=== PATIENT | female | born 1985 | race Caucasian/White ===

== ENCOUNTER 2018-04-11 07:38 | Inpatient (IN) | payer OTHER ==
[2018-04-11] MEDS ORDERED: ONDANSETRON 4 MG/2 ML VIAL IVP ONE (07:53)
[2018-04-11] MEDS ORDERED: NS 1,000 ML IV ONE ×2 (07:53→11:24)
[2018-04-11] MEDS ORDERED: KETOROLAC 30 MG/1 ML SDV IVP ONE (08:11)
--- NOTE | 2018-04-11 08:12 | EDPHY ---
HPI/HX/ROS/PE/MDM Narrative: CHIEF COMPLAINT: Abdominal cramping, nausea HPI: This patient is a 33 year old female with no significant past medical history. Yesterday evening, she had [place] food for dinner at a restaurant. About 12 hours ago, she developed generalized abdominal cramping which has worsened steadily. Upon her arrival in the ED this morning, she began vomiting. She denies diarrhea and has not been able to have any bowel movements. She has felt febrile. Her significant other at bedside ate different food at the same restaurant and is asymptomatic. The patient denies history of abdominal surgery. Her last menstrual period was three weeks ago. No chest pain, shortness of breath, dysuria, hematemesis, or other associated symptoms. REVIEW OF SYSTEMS: Aside from elements discussed in the HPI, a comprehensive 10-point review of systems was reviewed and is negative. PMH: Denies. SOCIAL HISTORY: Significant other at bedside. Lives in [place]. Employed. Does not abuse tobacco, drugs, or alcohol. PHYSICAL EXAM: General:Patient is alert, in no acute distress. ENT:Eyes are normal to inspection. ENT inspection normal. Neck: Normal inspection. Full range of motion. Respiratory:No respiratory distress. Breath sounds normal bilaterally. Cardiovascular: Regular rate and rhythm. Strong peripheral pulses. Normal cap refill. Abdomen: Diffuse mild abdominal pain. There are no peritoneal signs. There are normal bowel sounds. Back: Normal to inspection. No tenderness to palpation. Skin: Normal color. No rash. Warm and dry. Extremities: Normal appearance. Full range of motion. Neuro: Oriented x3. Normal motor function. Normal sensory function. ED Course: 33 y/o female presents with abdominal cramping and nausea onset 12 hours ago. She began vomiting on arrival in the ED. Plan for labs including CBC, chemistries, liver, lipase, BHCG, UA. Plan to administer 1L IVF, 4mg IV Zofran, and 30mg IV Ketorolac for symptom relief. BHCG negative. WBC 15,000. 11:[address] Luna, radiologist. CT abdomen/pelvis shows ruptured appendicitis. The patient's last oral intake was yesterday evening around 19: 00. 11:[address] Regan, general surgeon. He will evaluate the patient. He accepts admission for appendicitis. Plan to administer 1gm IV Rocephin, 500mg IV Flagyl, 0.5mg IV Dilaudid, and an additional 1L IV NS. - Data Points Imaging Results: Imaging Impressions Abdomen CT 04/11/18 10:22 Impression: 1. Acute almost certainly ruptured appendicitis with a small amount of ascites with no visible abscess. 2. Additional findings as above. Findings discussed with Lalo Hogue MD 04/11/2018 at 11:18. Laboratory Results: Laboratory Results 04/11/18 08:00 04/11/18 08:00 04/11/18 04/11/18 04/11/18 11:00 08:00 08:00 WBC RBC Hgb Hct MCV MCH MCHC RDW Plt Count MPV Neut % (Auto) Lymph % (Auto) Henry % (Auto) Eos % (Auto) Baso % (Auto) Nucleat RBC Rel Count Absolute Neuts (auto) Absolute Lymphs (auto) Absolute Monos (auto) Absolute Eos (auto) Absolute Basos (auto) Absolute Nucleated RBC Immature Gran % Immature Gran # Sodium 136 mEq/L mEq/L (135-145) Potassium 3.9 mEq/L mEq/L (3.3-5.0) Chloride 104 mEq/L mEq/L (97-110) Carbon Dioxide 21 mEq/l L mEq/l (22-31) Anion Gap 11 mEq/L mEq/L (8-16) BUN 10 mg/dL mg/dL (7-23) Creatinine 0.8 mg/dL mg/dL (0.6-1.0) Estimated GFR > 60 Glucose 143 mg/dL H mg/dL (70-100) Calcium 10.1 mg/dL mg/dL (8.5-10.4) Total Bilirubin 0.6 mg/dL mg/dL (0.1-1.4) Conjugated Bilirubin 0.2 mg/dL mg/dL (0.0-0.5) Unconjugated Bilirubin 0.4 mg/dL mg/dL (0.0-1.1) AST 23 IU/L IU/L (14-46) ALT 24 IU/L IU/L (9-52) Alkaline Phosphatase 53 IU/L IU/L (38-126) Total Protein 6.6 g/dL g/dL (6.3-8.2) Albumin 4.0 g/dL g/dL (3.5-5.0) Lipase 161 IU/L IU/L (23-300) Beta HCG, Qual NEGATIVE Urine Color YELLOW Urine Appearance MODERATELY TURBID Urine pH 7.0 (5.0-7.5) Ur Specific Cameron 1.013 (1.002-1.030) Urine Protein NEGATIVE (NEGATIVE) Urine Ketones NEGATIVE (NEGATIVE) Urine Blood NEGATIVE (NEGATIVE) Urine Nitrate NEGATIVE (NEGATIVE) Urine Bilirubin NEGATIVE (NEGATIVE) Urine Urobilinogen NEGATIVE EU EU (0.2-1.0) Ur Leukocyte Esterase NEGATIVE (NEGATIVE) Urine Glucose NEGATIVE (NEGATIVE) 04/11/18 08:00 WBC 15.08 10^3/uL H 10^3/uL (3.80-9.50) RBC 4.97 10^6/uL 10^6/uL (4.18-5.33) Hgb 15.2 g/dL g/dL (12.6-16.3) Hct 43.3 % % (38.0-47.0) MCV 87.1 fL fL (81.5-99.8) MCH 30.6 pg pg (27.9-34.1) MCHC 35.1 g/dL g/dL (32.4-36.7) RDW 11.7 % % (11.5-15.2) Plt Count 325 10^3/uL 10^3/uL (150-400) MPV 10.8 fL fL (8.7-11.7) Neut % (Auto) 80.2 % H % (39.3-74.2) Lymph % (Auto) 14.3 % L % (15.0-45.0) Henry % (Auto) 4.4 % L % (4.5-13.0) Eos % (Auto) 0.5 % L % (0.6-7.6) Baso % (Auto) 0.3 % % (0.3-1.7) Nucleat RBC Rel Count 0.0 % % (0.0-0.2) Absolute Neuts (auto) 12.08 10^3/uL H 10^3/uL (1.70-6.50) Absolute Lymphs (auto) 2.15 10^3/uL 10^3/uL (1.00-3.00) Absolute Monos (auto) 0.67 10^3/uL 10^3/uL (0.30-0.80) Absolute Eos (auto) 0.08 10^3/uL 10^3/uL (0.03-0.40) Absolute Basos (auto) 0.05 10^3/uL 10^3/uL (0.02-0.10) Absolute Nucleated RBC 0.00 10^3/uL 10^3/uL (0-0.01) Immature Gran % 0.3 % % (0.0-1.1) Immature Gran # 0.05 10^3/uL 10^3/uL (0.00-0.10) Sodium Potassium Chloride Carbon Dioxide Anion Gap BUN Creatinine Estimated GFR Glucose Calcium Total Bilirubin Conjugated Bilirubin Unconjugated Bilirubin AST ALT Alkaline Phosphatase Total Protein Albumin Lipase Beta HCG, Qual Urine Color Urine Appearance Urine pH Ur Specific Cameron Urine Protein Urine Ketones Urine Blood Urine Nitrate Urine Bilirubin Urine Urobilinogen Ur Leukocyte Esterase Urine Glucose Medications Given: Discontinued Medications Cefazolin Sodium (Ancef Syringe) Confirm Administered Dose 1 gm .ROUTE .STK-MED ONE Stop: 04/11/18 13:46 Last Admin: 04/11/18 15:26 Dose: 1 gm Cefazolin Sodium (Ancef Syringe) Confirm Administered Dose 1 gm .ROUTE .STK-MED ONE Stop: 04/11/18 13:46 Last Admin: 04/11/18 15:25 Dose: 1 gm Fentanyl (Sublimaze) 25 mcg IVP .Q5MIN PRN PRN Reason: Pain, Severe Stop: 04/11/18 14:00 Last Admin: 04/11/18 13:42 Dose: 25 mcg Heparin Sodium (Porcine) (Heparin Sc Injection) Confirm Administered Dose 5,000 unit .ROUTE .STK-MED ONE Stop: 04/11/18 13:45 Last Admin: 04/11/18 15:28 Dose: 5,000 unit Heparin Sodium (Porcine) (Heparin Sc Injection) Confirm Administered Dose 5,000 unit .ROUTE .STK-MED ONE Stop: 04/11/18 13:51 Last Admin: 04/11/18 15:27 Dose: 5,000 unit Sodium Chloride (Ns) 1,000 mls @ 0 mls/hr IV EDNOW ONE; Wide Open PRN Reason: Protocol Stop: 04/11/18 07:54 Last Admin: 04/11/18 08:03 Dose: 1,000 mls Ceftriaxone Sodium/Dextrose (Rocephin 1 Gm (Premix)) 50 mls @ 100 mls/hr IV EDNOW ONE PRN Reason: Protocol Stop: 04/11/18 11:53 Last Admin: 04/11/18 11:59 Dose: 50 mls Sodium Chloride (Ns) 1,000 mls @ 0 mls/hr IV EDNOW ONE; Wide Open PRN Reason: Protocol Stop: 04/11/18 11:25 Last Admin: 04/11/18 12:00 Dose: 1,000 mls Lactated Ringer's (Lr) 1,000 mls @ 0 mls/hr IV ONCE ONE PRN Reason: Per Protocol Stop: 04/11/18 12:24 Last Admin: 04/11/18 13:05 Dose: 1,000 mls Metronidazole/Sodium Chloride (Flagyl 500 Mg (Premix)) 100 mls @ 100 mls/hr IV ONCALL ONE PRN Reason: Protocol Stop: 04/11/18 14:29 Last Admin: 04/11/18 13:42 Dose: 100 mls Ketorolac Tromethamine (Toradol) 30 mg IVP EDNOW ONE Stop: 04/11/18 08:12 Last Admin: 04/11/18 08:29 Dose: 30 mg Lorazepam (Ativan Injection) 0.5 mg IVP EDNOW ONE Stop: 04/11/18 11:14 Last Admin: 04/11/18 11:18 Dose: 0.5 mg Midazolam HCl (Versed) 2 mg IVP ONCALL ONE Stop: 04/11/18 14:41 Last Admin: 04/11/18 14:49 Dose: 2 mg Ondansetron HCl (Zofran) 4 mg IVP EDNOW ONE Stop: 04/11/18 07:54 Last Admin: 04/11/18 08:03 Dose: 4 mg General Time Seen by Provider: 04/11/18 08:05 Initial Vital Signs: Initial Vital Signs Temperature (C) 36.4 C 04/11/18 07:41 Heart Rate 67 04/11/18 07:41 Respiratory Rate 22 H 04/11/18 07:41 Blood Pressure 92/46 L 04/11/18 07:41 O2 Sat (%) 100 04/11/18 07:41 O2 Delivery Mode Room Air Allergies/Adverse Reactions: No Known Allergies Allergy (Unverified 04/11/18 07:40) Home Medications: Medication Instructions Recorded Bcp 04/11/18 Departure - Departure Disposition: To OP Cath/Surgery Clinical Impression: Acute appendicitis Qualifiers: Acute appendicitis type: unspecified acute appendicitis type Qualified Code(s) : K35.80 - Unspecified acute appendicitis Condition: Fair Report Scribed for: Lalo Hogue Report Scribed by: Annalise Grayson Date of Report: 04/11/18 Time of Report: 08:09 Physician Review and Approval Statement: Portions of this note were transcribed by an ED scribe. I personally performed the history, physical exam, and medical decision making; and confirm the accuracy of the information in the transcribed note.
[2018-04-11 08:15] LABS: PLATELET COUNT 325 10^3/uL (150-400)
[2018-04-11] MEDS ORDERED: KETOROLAC 30 MG/1 ML SDV ONE ×2 (08:28→16:10)
[2018-04-11] MEDS ORDERED: IOPAMIDOL (ISOVUE-300) 100 ML BTL ONE (10:40)
[2018-04-11] MEDS ORDERED: LORazepam 2 MG/ML INJ IVP ONE (11:13)
[2018-04-11] MEDS ORDERED: HYDROmorphONE/DILAUDID 2 MG/ML INJ IVP ONE (12:18)
[2018-04-11] MEDS ORDERED: ACETAMINOPHEN 500 MG TAB PO ONE (12:18)
[2018-04-11] MEDS ORDERED: LR 1,000 ML IV ONE (12:23)
--- NOTE | 2018-04-11 12:49 | GHP ---
[f rep st] PREOP HISTORY AND PHYSICAL DATE OF ADMISSION: 04/11/2018 ADMISSION DIAGNOSIS: Appendicitis, possibly ruptured. HISTORY: The patient is a 33-year-old white female who last night ate Filipino food, then Cook Islander food. She experienced an epigastric pain in waves. She felt poorly overnight. She vomited on admission t o the ER. She has had minimal stool outlets out since onset. She has an upper respiratory tract iss ue which she has ascribed to allergies. She has not had diarrhea. She has not had any antibiotics i n the last 6 months. She was in [place] from February 23 to . No history of inflammatory bowel disease . No prior abdominal surgery. Her last menstrual period was 2-3 weeks ago. She does not smoke. Sh e drinks approximately 5 drinks a weekend. ALLERGIES: She has no known drug allergies. MEDICATIONS: She is on oral contraceptives. PAST SURGICAL HISTORY: Her only surgery has been wisdom tooth extraction and dental implants. PAST MEDICAL HISTORY: There is no history of rheumatic fever, tuberculosis, hepatitis, transfusions. REVIEW OF SYSTEMS: She has 2 dental implants. She indicates her upper lateral incisors. Review of systems is absolutely negative. No limits on her activities. No history of steroid use. FAMILY HISTORY: Mother is 65 years old and alive and well. Her father at age 68 from pancreati c cancer. The patient's younger brother, who is 29, is alive and well. There are no bleeding disord ers, clotting disorders, difficulty with anesthesia in the patient's family. PHYSICAL EXAMINATION: GENERAL: She is seen lying on her right side. She is interactive, but uncomf ortable. HEENT: Her skull is normocephalic and atraumatic. NECK: There is no thyroid enlargement. There are no jugular bruits. BACK: Her back is unremarkable. LUNGS: Clear to auscultation. CAR DIAC: Her cardiac exam shows S1, S2 to be normal. LYMPHATICS: There is no cervical, supraclavicula r, axillary or inguinal lymphadenopathy. ABDOMEN: Mildly distended. She has hypoactive bowel sound s. She has a positive obturator and negative psoas sign. She is tender 2 fingerbreadths inferior an d 2 fingerbreadths lateral to the umbilicus. It is tender to a level of 8 with cough. To palpation, left upper quadrant is 6/10, left midabdomen is 8, left lower quadrant 6, epigastrium is 7, periumbi lical area is 8, suprapubic area is 8, right upper quadrant 6, right mid abdomen is 8, right lower qu adrant is 8-9. EXTREMITIES: Her extremities are unremarkable. LABORATORY DATA: Her beta HCG is negative. Her urine is unremarkable. Her glucose is 143. Her whi te count is 15,000 with 80% neutrophils. Hematocrit is 43%. Her platelets were 325. IMAGING: Her CT scan shows an appendix that may or may not be ruptured. It is medially located cons istent with the point of maximal tenderness with cough. She will receive ceftriaxone and Flagyl preo peratively. She will go to the operating room as soon as a room is available. /[id number]/MODL
[2018-04-11] MEDS: fentaNYL 100 MCG/2 ML INJ IVP PRN ×4 (12:55→13:42)
--- NOTE | 2018-04-11 13:28 | PDANEPAE ---
ANE History of Present Illness laparoscopic appendectomy ANE Past Medical History - Cardiovascular History Hx Hypertension: No Hx Arrhythmias: No Hx Chest Pain: No Hx Coronary Artery / Peripheral Vascular Disease: No Hx CHF / Valvular Disease: No Hx Palpitations: No - Pulmonary History Hx COPD: No Hx Asthma/Reactive Airway Disease: No Hx Recent Upper Respiratory Infection: No Hx Oxygen in Use at Home: No Hx Sleep Apnea: No - Neurologic History Hx Cerebrovascular Accident: No Hx Seizures: No Hx Dementia: No - Endocrine History Hx Diabetes: No Obesity: no - Renal History Hx Renal Disorders: No - Liver History Hx Hepatic Disorders: No - Neurological & Psychiatric Hx Hx Neurological and Psychiatric Disorders: No - Cancer History Hx Cancer: No - Congenital Disorder History Hx Congenital Disorders: No - GI History GERD: no Hx Gastrointestinal Disorders: No - Chronic Pain History Chronic Pain: No - Surgical History Prior Surgeries: wisdom teeth, tooth implants ANE Review of Systems Review of Systems: - Exercise capacity METS (RN): 6 METS ANE Patient History - Allergies Allergies/Adverse Reactions: No Known Allergies Allergy (Unverified 04/11/18 07:40) - Home Medications Home Medications: Bcp 04/11/18 [Last Taken 04/10/18] - NPO status NPO Since - Liquids (Date): 04/11/18 NPO Since - Liquids (Time): 07:00 NPO Since - Solids (Date): 04/10/18 NPO Since - Solids (Time): 23:30 - Smoking Hx Smoking Status: Never smoked Marijuana use: Yes - Alcohol Use Alcohol Use: Other (1 drink/week) - Family Anes Hx Family Anes Hx: none Family Hx Anesthesia Complications: none known ANE Labs/Vital Signs - Labs Result Diagrams: 04/11/18 08:00 04/11/18 08:00 - Vital Signs Blood Pressure: 108/64 Heart Rate: 77 Respiratory Rate: 16 O2 Sat (%): 97 Height: 165.1 cm Weight: 56.699 kg ANE Physical Exam - Airway Neck exam: FROM Mallampati Score: Class 2 Mouth exam: normal dental/mouth exam (Upper front implants) - Pulmonary Pulmonary: clear to auscultation - Cardiovascular Cardiovascular: regular rate and rhythym - ASA Status ASA Status: II, E ANE Anesthesia Plan Anesthesia Plan: general endotracheal anesthesia
[2018-04-11] MEDS ORDERED: HEPARIN 5,000 UNIT/0.5 ML INJ ONE ×2 (13:44→13:50)
[2018-04-11] MEDS ORDERED: ceFAZolin 1 GM/5 ML SYR ONE ×2 (13:45)
[2018-04-11] MEDS ORDERED: fentaNYL 250 MCG/5 ML INJ ONE (14:30)
[2018-04-11] MEDS ORDERED: ROCURONIUM 50 MG/5 ML VIAL ONE (14:30)
[2018-04-11] MEDS ORDERED: PROPOFOL 200 MG/20 ML VIAL ONE (14:30)
[2018-04-11] MEDS ORDERED: DEXAMETHASONE 4 MG/ML VIAL ONE (14:30)
[2018-04-11] MEDS ORDERED: MIDAZOLAM 2 MG/2 ML VIAL IVP ONE (14:40)
[2018-04-11] MEDS ORDERED: SUCCINYLCHOLINE CHLORIDE 200 MG/10 ML SYR IVP ONE (14:51)
[2018-04-11] MEDS ORDERED: METOCLOPRAMIDE 10 MG/2 ML VIAL ONE (15:21)
[2018-04-11] MEDS ORDERED: ONDANSETRON 4 MG/2 ML VIAL ONE (15:40)
[2018-04-11] MEDS ORDERED: fentaNYL 100 MCG/2 ML INJ IVP PRN (15:55)
[2018-04-11] MEDS ORDERED: ONDANSETRON 4 MG/2 ML VIAL IVP PRN ×2 (15:55→16:57)
[2018-04-11] MEDS ORDERED: NALOXONE HCL 0.4 MG/ML INJ IVP PRN (15:55)
[2018-04-11] MEDS ORDERED: NEOSTIGMINE METHYLSULFATE 10 MG/10 ML MDV ONE (15:56)
[2018-04-11] MEDS ORDERED: GLYCOPYRROLATE 0.2 MG/1 ML VIAL ONE (15:56)
--- NOTE | 2018-04-11 16:32 | POSTANESTH ---
Post Anesthetic Evaluation Cardiovascular Status: Normal, Stable Respiratory Status: Normal, Stable Level of Consciousness/Mental Status: Can Participate in Eval Pain Control: Adequate, Prn Tx Ordered Nausea/Vomiting Control: Adequate, Prn Tx Ordered Complications Possibly Related to Anesthesia: None Noted
[2018-04-11] MEDS ORDERED: HYDROmorphone HCL/NS 0.5 MG/ML SYR IVP PRN (17:02)
--- NOTE | 2018-04-11 17:09 | POSTOPPROG ---
Post Op Note Date of Operation: 04/11/18 Surgeon: Luis Daniel Regan Anesthesia: GET(General Endotracheal) Pre-op Diagnosis: acute (possibly ruptured) appendicitis Post-op Diagnosis: acute ruptured appendicitis with mesenteric adenitis Indication: acute (possibly ruptured) appendicitis Procedure: Laparoscopic appendectomy Findings: acute ruptured appendicitis with mesenteric adenitis Inf/Abcess present in the surg proc area at time of surgery?: Yes Depth: Organ Space EBL: Minimal Total fluids administered: 1000 Complications: none Drains: João Abbott (In pelvis) Specimen(s): appendix, Peritoneal fluid
[2018-04-11] MEDS: ACETAMINOPHEN 500 MG TAB PO SCH (17:59)
[2018-04-11] MEDS: PIPERACILLIN/TAZO 3.375 GM/DEX 50 ML IV SCH ×2 (18:00→23:23)
[2018-04-11] MEDS: LR 1,000 ML IV SCH (18:07)
--- NOTE | 2018-04-11 19:12 | GOP ---
[f rep st] OPERATIVE REPORT DATE OF OPERATION: 04/11/2018 SURGEON: Luis Daniel Regan MD ANESTHESIA: General endotracheal. PREOPERATIVE DIAGNOSIS: Acute, possibly ruptured, appendicitis. POSTOPERATIVE DIAGNOSIS: Ruptured appendicitis with mesenteric adenitis and gross peritonitis. PROCEDURE PERFORMED: Laparoscopic appendectomy. Peritoneal fluid was sampled for culture. ZHANE drain was placed. FINDINGS: Ruptured appendicitis with mesenteric adenitis and gross peritonitis. INDICATIONS: Acute, possibly ruptured, appendicitis. DESCRIPTION OF PROCEDURE: The patient is placed on the operating table in supine position. After induction of adequate general endotracheal anesthesia, the abdomen was carefully prepped and draped. A surgical time-out was carried out and agreed to by all members of the operative team. A curvilinear incision was planned in the infraumbilical rim. A left lower quadrant 5 mm oblique and suprapubic transverse 5 mm incisions were also made. Infraumbilical incision is completed down to the fascia. The umbilical skin was carefully elevated. A small umbilical hernia was carefully dissected off the umbilical skin. Dissection was continued down to the rectus fascia. It was cleared circumferentially on the hernia. The herniated fat was carefully transected with cautery. A pursestring PDS was placed. The hernia defect was approximately 5 mm in diameter. The hernia defect is carefully enlarged, spreading. The peritoneum was entered. A 11-12 mm disposable Adrian trocar was positioned. Intraabdominal insufflation was carried out to 15 mm of high flow. The patient is placed in Trendelenburg position rotated 5 degrees to the left. On examining the belly, a large amount purulent fluid was noted in the pelvis. This is carefully aspirated and sent for aerobic and anaerobic cultures. Irrigation with heparin and Ancef- containing irrigant was carried out at this point. The appendix was carefully elevated. It is the distal 1/3 that is truly involved with inflammatory process. The omentum is carefully peeled away from it. The mesoappendix was divided down to the base of the appendix using Harmonic scalpel. The appendix was elevated and transection was carried out on the cecum taking a cuff with the appendix. The suture line was inspected and looks excellent. The specimen was placed in EndoCatch bag and delivered via the umbilical port site. Pneumoperitoneum was re-established. Copious irrigation was again carried out. The small bowel was carefully run for a distance of 3 feet. Mesenteric adenitis was identified in the region of the terminal ileum. There was no evidence of Meckel diverticulum. Photographic documentation of the ovaries and uterus were carried out. A total of 2 L of antibiotic and heparin-containing solution was used. Irrigation was carried out in all aspects of the abdomen. Tracheal irrigating above the liver and spleen. A ZHANE drain was placed down into the pelvis and led out through the left lower quadrant is secured with a suture of #3-0 silk. Ports removed under direct vision. An inverted simple suture #0 PDS was placed in the midline of the umbilical defect. This was tied. The pursestring was now tied. The umbilical skin was carefully tacked down to the midline. Both the skin incisions were now closed with inverted simple sutures of #4-0 Vicryl. Mastisol and Steri-Strips were placed. A sterile dressing was placed around the ZHANE drain. The patient is transferred to recovery in stable and satisfactory condition. SURGEON: Luis Daniel Regan MD /[id number]/MODL MTDD
[2018-04-11] MEDS: KETOROLAC 30 MG/1 ML SDV IVP SCH (23:22)
[2018-04-11] MEDS: HYDROmorphONE/DILAUDID 1 MG/ML INJ IVP PRN (23:23)
[2018-04-12] MEDS: ACETAMINOPHEN 500 MG TAB PO SCH ×3 (01:52→18:14)
[2018-04-12] MEDS: LR 1,000 ML IV SCH (04:14)
[2018-04-12 04:45] LABS: PLATELET COUNT 227 10^3/uL (150-400)
[2018-04-12] MEDS: PIPERACILLIN/TAZO 3.375 GM/DEX 50 ML IV SCH ×4 (06:02→23:56)
[2018-04-12] MEDS: KETOROLAC 30 MG/1 ML SDV IVP SCH ×4 (06:03→23:55)
[2018-04-12] MEDS ORDERED: NS 500 ML IV ONE (07:01)
--- NOTE | 2018-04-12 07:06 | SOAPPROG ---
SOAP Progress Note Assessment/Plan: 04/12/18 07:02 POD#1 Assessment: Doing better, WBC decreased 15 - 13, ZHANE drainage serosanguineous, Peritoneal fluid shows polys but no organisms No flatus yet Not cooperating with elevation of HOB. Urine output low Plan: Continue antibiotics/NPO 04/12/18 07:05 Subjective: I'm thirsty Objective: Vital Signs Temp Pulse Resp BP Pulse Ox 37.0 C 57 L 16 94/42 L 96 04/12/18 04:46 04/12/18 04:46 04/12/18 04:46 04/12/18 04:46 04/12/18 04:46 Microbiology 04/11/18 15:41 Gram Stain - Final Other - Aspirate Laboratory Results 04/12/18 04:15 04/12/18 04:15 04/11/18 04/12/18 04/13/18 05:59 05:59 05:59 Intake Total 3325 Output Total 360 Balance 2965 - Time Spent With Patient Time Spent With Patient: 15 - Pending Discharge Pending Discharge Within 24 Hours: No Pending Discharge Within 48 Hours: No Physical Exam - Physical Exam General Appearance: WD/WN, alert, mild distress Neck: non-tender, full range of motion, supple Respiratory: chest non-tender, lungs clear, normal breath sounds Cardiac/Chest: regular rate, rhythm Abdomen: soft, other (ZHANE drainage down, serosanguinous) Pelvic Exam: deferred Rectal: deferred Back: Normal inspection Skin: normal color, warm/dry Neuro/Psych: alert, normal mood/affect, oriented x 3 ICD10 Worksheet Patient Problems: Problems Problem Status Onset Acute appendicitis Acute
[2018-04-12] MEDS: HYDROmorphONE/DILAUDID 1 MG/ML INJ IVP PRN ×2 (08:56→22:15)
[2018-04-12] MEDS: CETIRIZINE 10 MG TAB PO SCH (09:33)
--- NOTE | 2018-04-12 10:40 | PDMN ---
Medical Necessity Medical necessity: MCG: S185, Appendectomy, with Abscess or Peritonitis, by Laparoscopy, 2 days: Lap Appy, ruptured appy w/ mesenteric adenitis and gross peritonitis, ZHANE drain in place, cont NPO, IV antibx and IV fluids. Status change to INPT 03/12 @ 1021.
[2018-04-12] MEDS: LEVONORGESTREL PO SCH ×2 (12:04→20:16)
[2018-04-12] MEDS: ETHINYL ESTRADIOL 0.03 MG PO SCH ×2 (12:04→20:16)
[2018-04-13] MEDS: ONDANSETRON 4 MG/2 ML VIAL IVP PRN ×2 (00:04→16:03)
[2018-04-13] MEDS: LR 1,000 ML IV SCH (01:55)
[2018-04-13] MEDS: ACETAMINOPHEN 500 MG TAB PO SCH ×3 (01:55→18:20)
[2018-04-13] MEDS: PIPERACILLIN/TAZO 3.375 GM/DEX 50 ML IV SCH ×4 (05:46→23:47)
[2018-04-13] MEDS: KETOROLAC 30 MG/1 ML SDV IVP SCH ×4 (05:46→23:47)
[2018-04-13] MEDS: HYDROmorphONE/DILAUDID 1 MG/ML INJ IVP PRN ×2 (05:47→16:03)
[2018-04-13 06:15] LABS: PLATELET COUNT 168 10^3/uL (150-400)
[2018-04-13] MEDS: CETIRIZINE 10 MG TAB PO SCH (10:14)
[2018-04-13] MEDS: ETHINYL ESTRADIOL 0.03 MG PO SCH (10:14)
[2018-04-13] MEDS: LEVONORGESTREL PO SCH (10:14)
[2018-04-13] MEDS: D5W 1/2 NS 1,000 ML IV SCH ×2 (10:57→19:40)
--- NOTE | 2018-04-13 18:14 | SOAPPROG ---
SOAP Progress Note Assessment/Plan: 04/12/18 07:02 POD#1 Assessment: Doing better, WBC decreased 15 - 13, ZHANE drainage serosanguineous, Peritoneal fluid shows polys but no organisms No flatus yet Not cooperating with elevation of HOB. Urine output low Plan: Continue antibiotics/NPO 04/13/18 18:10 POD#2 Assessment: Dramatically improved! Passing some gas, Afebrile, WBC down to 6, ZHANE output serous Three organisms isolated from peritoneal fluid. Sensitivities pending Plan: Stop stripping ZHANE. It's painful for her and drainage is now serous Try clear liquids. Consider changing to oral antibiotics is sensitivities become available and she continues to improve. Subjective: I'm intermittently hungry Objective: Vital Signs Temp Pulse Resp BP Pulse Ox 36.4 C 52 L 14 143/91 H 100 04/13/18 16:24 04/13/18 16:24 04/13/18 16:24 04/13/18 16:24 04/13/18 16:24 Laboratory Results 04/13/18 05:50 04/13/18 05:50 04/12/18 04/13/18 04/14/18 05:59 05:59 05:59 Intake Total 3000 Output Total 1080 1065 Balance 1920 -1065 - Time Spent With Patient Time Spent With Patient: 25 - Pending Discharge Pending Discharge Within 24 Hours: No Physical Exam - Physical Exam General Appearance: WD/WN, alert, mild distress Neck: full range of motion, supple Respiratory: chest non-tender, lungs clear, normal breath sounds Cardiac/Chest: regular rate, rhythm Abdomen: normal bowel sounds, distended, other (incisions well approximated, ZHANE drainage increasing but serous) Pelvic Exam: deferred Rectal: deferred Back: Normal inspection Skin: normal color, warm/dry Neuro/Psych: no motor/sensory deficits, alert, normal mood/affect, oriented x 3 ICD10 Worksheet Patient Problems: Problems Problem Status Onset Acute appendicitis Acute
[2018-04-13] MEDS: diphenhydrAMINE 25 MG CAP PO PRN (22:27)
[2018-04-14] MEDS: ACETAMINOPHEN 500 MG TAB PO SCH ×3 (01:57→18:05)
[2018-04-14] MEDS: PIPERACILLIN/TAZO 3.375 GM/DEX 50 ML IV SCH ×2 (05:16→12:21)
[2018-04-14] MEDS: KETOROLAC 30 MG/1 ML SDV IVP SCH ×3 (05:16→18:07)
[2018-04-14 05:36] LABS: PLATELET COUNT 215 10^3/uL (150-400)
[2018-04-14] MEDS: CETIRIZINE 10 MG TAB PO SCH (10:33)
[2018-04-14] MEDS: D5W 1/2 NS 1,000 ML IV SCH (15:46)
--- NOTE | 2018-04-14 17:32 | SOAPPROG ---
SOAP Progress Note Assessment/Plan: Assessment/Plan: - 33yo F c perforated appendicitis - VSS, HDS - WBC WNL - Cx growing briggs sens E coli, transitioned to PO abx - abdomen is soft, min distended and min tender. ADAT, keep ZHANE given significant SS output - likely home tomorrow, hopefully without drain 04/14/18 17:31 Subjective: feels well, hungry Objective: Vital Signs Temp Pulse Resp BP Pulse Ox 36.5 C 53 L 14 126/84 H 100 04/14/18 15:43 04/14/18 15:43 04/14/18 15:43 04/14/18 15:43 04/14/18 15:43 Laboratory Results 04/14/18 05:15 04/13/18 05:50 04/13/18 04/14/18 04/15/18 05:59 05:59 05:59 Intake Total 3000 1180 Output Total 1080 4165 2345 Balance 1920 -4165 -1165 ICD10 Worksheet Patient Problems: Problems Problem Status Onset Acute appendicitis Acute
[2018-04-14] MEDS: oxyCODONE IR 5 MG TAB PO PRN (19:15)
[2018-04-14] MEDS: LEVONORGESTREL PO SCH (19:16)
[2018-04-14] MEDS: ETHINYL ESTRADIOL 0.03 MG PO SCH (19:16)
[2018-04-14] MEDS: diphenhydrAMINE 25 MG CAP PO PRN (22:46)
[2018-04-15] MEDS: KETOROLAC 30 MG/1 ML SDV IVP SCH ×2 (00:05→05:34)
[2018-04-15] MEDS: ACETAMINOPHEN 500 MG TAB PO SCH ×2 (02:34→11:51)
[2018-04-15 05:56] LABS: PLATELET COUNT 262 10^3/uL (150-400)
[2018-04-15] MEDS: CETIRIZINE 10 MG TAB PO SCH (08:19)
[2018-04-15 08:26] VITALS: BP 130/88
[2018-04-15] MEDS: oxyCODONE IR 5 MG TAB PO PRN (09:33)
[2018-04-15] MEDS: SULFAMETHOX/TMP 800/160 MG 1 TAB PO SCH ×2 (09:33)
[2018-04-15] MEDS: LEVONORGESTREL PO SCH (10:00)
[2018-04-15] MEDS: ETHINYL ESTRADIOL 0.03 MG PO SCH (10:00)
--- NOTE | 2018-04-15 10:52 | SOAPPROG ---
SOAP Progress Note Assessment/Plan: 04/12/18 07:02 POD#1 Assessment: Doing better, WBC decreased 15 - 13, ZHANE drainage serosanguineous, Peritoneal fluid shows polys but no organisms No flatus yet Not cooperating with elevation of HOB. Urine output low Plan: Continue antibiotics/NPO 04/13/18 18:10 POD#2 Assessment: Dramatically improved! Passing some gas, Afebrile, WBC down to 6, ZHANE output serous Three organisms isolated from peritoneal fluid. Sensitivities pending Plan: Stop stripping ZHANE. It's painful for her and drainage is now serous Try clear liquids. Consider changing to oral antibiotics is sensitivities become available and she continues to improve. 04/15/18 10:49 POD#4 Assessment: Doing well! Afebrile, ZHANE drainage less,(ZHANE removed), incisions clean and dry, culture shows E. coli briggs-sensitive, bactrim started. On Bactrim since yesterday. WBC ok Plan: Home today Subjective: I'm ready to go home Objective: Vital Signs Temp Pulse Resp BP Pulse Ox 36.7 C 63 14 130/88 H 97 04/15/18 08:15 04/15/18 08:15 04/15/18 08:15 04/15/18 08:15 04/15/18 08:15 Laboratory Results 04/15/18 05:40 04/13/18 05:50 04/14/18 04/15/18 04/16/18 05:59 05:59 05:59 Intake Total 2780 Output Total 4165 2380 7 Balance -4165 400 -7 - Time Spent With Patient Time Spent With Patient: 15 - Pending Discharge Pending Discharge Within 24 Hours: Yes Pending Discharge Date: 04/15/18 Pending Discharge Time: 12:00 Physical Exam - Physical Exam General Appearance: WD/WN, alert, no apparent distress Respiratory: chest non-tender, lungs clear, normal breath sounds Cardiac/Chest: regular rate, rhythm Abdomen: normal bowel sounds, non-tender, soft, distended (Minimally) Pelvic Exam: deferred Rectal: deferred Back: Normal inspection Skin: other (incisions all clean and dry) Extremities: normal range of motion Neuro/Psych: no motor/sensory deficits, alert, normal mood/affect, oriented x 3 ICD10 Worksheet Patient Problems: Problems Problem Status Onset Acute appendicitis Acute
--- NOTE | 2018-04-15 12:34 | GDS ---
[f rep st] DISCHARGE SUMMARY DISCHARGE DIAGNOSIS: Acute ruptured appendicitis with gross peritonitis. CONDITION AT DISCHARGE: Improved. DISPOSITION: Home. DIET: Unrestricted, although I have recommended she avoid constipating foods such as bananas, rice, applesauce, and cheese. Texture is unlimited. DISCHARGE MEDICATIONS: Will include Tylenol 1000 mg every 8 hours and Toradol 10 mg p.o. q.6 hours, and when Toradol is complete, to switch to Motrin 200 mg every 6 hours. She will supplement with Dilaudid 2-4 mg every 4 hours as needed for pain; #20 are dispensed. She will continue her home medications, which include her control and Claritin. She will take Bactrim DS 1 tablet twice a day for infection for the next 14 days. ACTIVITY: Limited for the next 3 weeks to lifting less than 10 pounds, to shower only and to keep the Steri-Strips in place. She is not to shower until tomorrow afternoon because of the drain removal. She is to take a multivitamin with zinc, copper and C daily. I have recommended that she return to work in approximately 2 weeks. She is to lift less than 10 pounds. The first 2 days she is back I recommend that her shifts be no longer than 4 hours. She is to watch for signs of infection, and they have been explained to her: Superficial infection will be manifested by redness, swelling, warmth, and tenderness, and a deep infection will be manifested by fevers, chills, malaise, nausea, lack of appetite, and abdominal pain. HOSPITAL COURSE: The patient was admitted and taken to surgery. A ZHANE drain had been placed in her pelvis. Her peritoneal culture subsequently proved to be pansensitive E coli, and she was started on Bactrim. Her white count has returned to normal range. Her hematocrit is stable. She is eating well, Her ZHANE has been removed and she is set for discharge. /[id number]/MODL MTDD
== END 2018-04-15 11:45 | disposition home or self-care (01) | DRG 340 ==
LOC: FOB 17:00 → OBSVTOIN 04-12 10:21 → FOB 04-13 13:26
PROVIDERS: ADMIT Surgery; ATTEND Surgery
PROC: 0DTJ4ZZ Resection of Appendix, Percutaneous Endoscopic Approach (ICD-10-PCS; principal; 2018-04-11 15:00)
DX: K35.2 Acute appendicitis with generalized peritonitis (principal); I88.0 Nonspecific mesenteric lymphadenitis; B96.20 Unspecified Escherichia coli [E. coli] as the cause of diseases classified elsewhere
CPT/HCPCS: 96365; G0378; J0330; J0696; J1100; J1170; J1644; J1885; J2060; J2250; J2405; J2543; J2704; J2765; J3010; Q9967